=== PATIENT | male | born 1960 | race American Indian/Alaskan Native ===

== ENCOUNTER 2017-05-01 09:20 | Outpatient (CLI) | payer MEDICAID ==
--- NOTE | 2017-05-01 10:59 | Fluoroscopy Report ---
Barium swallow: History: Dysphagia. Findings: There is 1 cm length narrowed segment noted on cervical esophagus noted distal to pharyngoesophageal junction at the level of C4-C5. Minimal irregularity is noted of the wall. Distally the esophagus appears unremarkable. No hiatal hernia. Moderate gastroesophageal reflux. Impression: Narrowed segment of upper cervical esophagus as detailed above. Further evaluation with esophagoscopy recommended. Moderate gastroesophageal reflux.
== END 2017-05-01 09:21 | disposition home or self-care (01) ==
LOC: FLUORO 09:20
PROVIDERS: ATTEND Internal Medicine Gastroenterology
DX: K21.0 Gastro-esophageal reflux disease with esophagitis (principal); F10.10 Alcohol abuse, uncomplicated; R79.1 Abnormal coagulation profile
CPT/HCPCS: 74220